=== PATIENT | male | born 1995 | race African-American/Black ===

== ENCOUNTER 2022-09-18 01:30 | Emergency (ER) | payer SELFPAY ==
[~2022-09-18] VITALS: Ht 170.2 cm; Wt 55.0 kg
[2022-09-18 01:47] VITALS: BP 129/93
== END 2022-09-18 07:57 | disposition left against medical advice (07) ==
LOC: ER 01:30
DX: Z53.21 Procedure and treatment not carried out due to patient leaving prior to being seen by health care provider (principal)